=== PATIENT | female | born 1990 | race Hispanic/Latino ===

== ENCOUNTER 2020-07-24 09:20 | Observation (INO) | payer BC, OTHER ==
[~2020-07-24] VITALS: Ht 162.6 cm; Wt 81.6 kg
[2020-07-24] MEDS ORDERED: SODIUM CHLORIDE 0.9% 1000ML 1,000 ML IV STA (09:33)
--- NOTE | 2020-07-24 09:36 | Emergency Department Note ---
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 PT STATES SHE HAS NOT BEEN ABLE TO EAT SINCE. PT REPORTS VOMITING YESTERDAY. Historian: Patient Arrival Mode: Car Additional Treatment RECOVERY ASSISTANT: antacid yesterday Hand Etcher Helper Required: No Onset (how long ago): day(s) (2) Location: RLQ Quality: Sharp Radiation: Reports non-radiation Severity: moderate Onset quality: gradual Duration (how long): day(s) (2) Timing of current episode: constant Progression: worsening Chronicity: new Context: Denies recent illness, Denies recent surgery Relieving factors: none Exacerbating factors: none Associated symptoms: Reports denies other symptoms Treatments prior to arrival: none Past Medical/Family History Physician Review I have reviewed the patient's past medical and family history. Any updates have been documented here. Past Medical History Recent Fever: No Clinical Suspicion of Infectio: No New/Unexplained Change in Ment: No Past Surgical History: Bariatric Surgery Other Surgery: PILONIDAL CYST REMOVED Social History Smoking Cessation: Current some day smoker Alcohol Use: Occasional Any Illegal Drug Use: No Physically hurt or threatened: No Other Last Tetanus: UTD Any Pre-Existing Lines (PICC,: No Review of Systems Review of Systems Constitutional: Reports no symptoms EENTM: Reports no symptoms Cardiovascular: Reports no symptoms Respiratory: Reports no symptoms Gastrointestinal: Reports as per HPI, Reports abdominal pain, Reports nausea, Reports vomiting Genitourinary: Reports no symptoms Musculoskeletal: Reports no symptoms Integumentary: Reports no symptoms Neurological: Reports no symptoms Psychological: Reports no symptoms Endocrine: Reports no symptoms Hematological/Lymphatic: Reports no symptoms Physical Exam Related Data Allergies: Coded Allergies: No Known Drug Allergies (Verified Allergy, Unknown, 05/04/12) Triage Vital Signs Vital Signs Date Time Temp Pulse Resp B/P (MAP) Pulse Ox O2 Delivery O2 Flow Rate FiO2 07/24/20 09:23 98.1 83 18 142/95 100 Vital signs reviewed: Yes Physical Exam CONSTITUTIONAL Constitutional: Present well-developed, Present well-nourished HENT HENT: Present normocephalic, Present atraumatic, Present oropharynx clear/moist, Present nose normal HENT L/R: Present left ext ear normal, Present right ext ear normal EYES Eyes: Reports PERRL, Reports conjunctivae normal NECK Neck: Present ROM normal PULMONARY Pulmonary: Present effort normal, Present breath sounds normal CARDIOVASCULAR Cardiovascular: Present regular rhythm, Present heart sounds normal, Present capillary refill normal, Present normal rate GASTROINTESTINAL Abdominal: Present soft, Present bowel sounds normal, Present tender (RLQ); Absent nontender GENITOURINARY Genitourinary: Present exam deferred SKIN Skin: Present warm, Present dry MUSCULOSKELETAL Musculoskeletal: Present ROM normal NEUROLOGICAL Neurological: Present alert, Present oriented x 3, Present no gross motor or sensory deficits PSYCHOLOGICAL Psychological: Present mood/affect normal, Present judgement normal Results Laboratory Lab results reviewed: Yes Imaging Imaging results reviewed: Yes Diagnostics Tests Diagnostic test(s) reviewed: Yes Assessment & Plan Medical Decision Making MDM 29 y.o F presents for RLQ abd pain x 2 days. Exam sows RLQ tenderness. VSS, WNL. Diff includes appendicitis vs ovarian etiology vs functional abdominal pain among others. W/u Shows uncomfortable appendicitis. Dr. Bettencourt was consulted and will admit for surgery this afternoon. She was given Zosyn and blood cultures were sent. I do not suspect sepsis at this time and she'll not require fluids. Maintenance fluids started patient's appropriate for transfer to the OR. Reassessment Reassessment time: 11:29 Reassessment Well appearing, NAD Assessment & Plan Final Impression: (1) Appendicitis Depart Disposition: ADMITTED Last Vital Signs Date Time Temp Pulse Resp B/P (MAP) Pulse Ox O2 Delivery O2 Flow Rate FiO2 07/24/20 09:23 98.1 83 18 142/95 100 Home Meds No Active Prescriptions or Reported Meds CAMI ARAIZA MD Jul 24, 2020 09:36
[2020-07-24] MEDS ORDERED: MORPHINE SULFATE INJ 4 MG/ML INJ 1ML IV PRN ×2 (09:45→11:45)
[2020-07-24] MEDS ORDERED: ONDANSETRON HCL INJ 2MG/ML 2ML 2 MG/ML VIAL IV PRN ×2 (09:45→11:30)
[2020-07-24 09:50] LABS: BASOPHILS # (AUTO) 0.1 (0.0-0.1); BASOPHILS % 0.5 % (0.0-1.0); EOSINOPHILS # (AUTO) 0.1 (0.0-0.4); EOSINOPHILS % 0.5 % (0.0-6.0); HEMATOCRIT 34.1 % (34.2-44.1); HEMOGLOBIN 10.2 g/dL (12.0-16.0); LYMPHOCYTES # (AUTO) 2.1 (1.0-3.2); LYMPHOCYTES % 16.2 % (18.0-39.1); MEAN CORPUSCULAR HEMOGLOBIN 23.2 pg (28-32); MEAN CORPUSCULAR HGB CONC 29.9 g/dL (31-35); MEAN CORPUSCULAR VOLUME 77.5 fL (81-99); MONOCYTES # (AUTO) 0.5 (0.2-0.8); MONOCYTES % 4.1 % (4.4-11.3); NEUTROPHILS % 78.3 % (38.7-80.0); PLATELET COUNT 430 x10e3/uL (140-360); RED CELL DISTRIBUTION WIDTH 15.1 % (11.7-14.4)
--- OUTSIDE RECORDS SUMMARY | 2020-07-24 09:56 | XMS REPORT | Clinical Summary ---
Author Author [facility] Address Unknown Phone Unavailable Care Team Providers Care Radio Board Operator Announcer Name Role Phone PCP Unavailable Allergies Not on File Medications Not on file Active Problems Not on file Immunizations Name Administration Dates Next Due FLUCELVAX QUAD PF 06/20/2019, 05/18/2018 Social History Date Tobacco Use Types Packs/Day Years Used Never Assessed Sex Assigned at Date Recorded Not on file Last Filed Vital Signs Not on file Plan of Treatment Health Maintenance Due Date Last Done Comments CERVICAL CANCER SCREENING 2013 INFLUENZA VACCINE 03/30/2020 06/20/2019, 05/18/2018 Results Not on fileafter 07/24/2019 Insurance Type Payer Benefit Subscriber ID Effective Phone Address Plan / Dates Group PPO BCBS BCBS [id number] 2018-P CHOICE resent PPO/FEDER[place] L EMPL PPO PPO BCBS ANTHEM [id number] 2015-P BLUE CROSS resent Advance Directives For more information, please contact: [phone] Patient Clinical Exercise Specialist Explanation Type Date Recorded Advance Directives, Living Will and Medical Power of Gun Stock Maker
[2020-07-24 10:23] LABS: ALANINE AMINOTRANSFERASE 6 IU/L (0-55); ALBUMIN 3.9 g/dL (3.5-5.0); ALBUMIN/GLOBULIN RATIO 0.9 (0.8-2.0); ALKALINE PHOSPHATASE 59 IU/L (40-150); ANION GAP 13.1 mmol/L (8-16); BLOOD UREA NITROGEN 6 mg/dL (7-26); BUN/CREATININE RATIO 9 (6-25); CALCIUM 9.2 mg/dL (8.4-10.2); CARBON DIOXIDE 24 mmol/L (22-29); CHLORIDE 103 mmol/L (98-107); CREATININE, SERUM 0.69 mg/dL (0.57-1.11); EST GLOMERULAR FILTRATION RATE > 60 ML/MIN (60-); GLUCOSE 94 mg/dL (74-118); LIPASE 11 U/L (8-78); POTASSIUM 4.1 mmol/L (3.5-5.1); SODIUM 136 mmol/L (136-145)
[2020-07-24 10:29] LABS: HCG,QUANTITATIVE < 1.20 mIU/mL (0-10)
[2020-07-24] MEDS ORDERED: PIPERACILLIN/TAZO 4.5 GM 100 ML IV STA (11:16)
--- NOTE | 2020-07-24 11:19 | Diagnostic Imaging Report ---
EXAM: CT Abdomen and Pelvis WITH intravenous contrast INDICATION: Right lower quadrant abdominal pain COMPARISON: None. TECHNIQUE: Abdomen and pelvis were scanned utilizing a multidetector helical scanner from the lung base to the pubic symphysis after administration of IV contrast. Coronal and sagittal reformations were obtained. Routine protocol was performed. Scan was performed during portal venous phase. IV CONTRAST: 100mL of Isovue 370 ORAL CONTRAST: Water RADIATION DOSE: Total DLP: 425 mGy*cm Dose modulation, iterative reconstruction, and/or weight based adjustment of the mA/kV was utilized to reduce the radiation dose to as low as reasonably achievable. FINDINGS: LOWER THORAX: Normal. HEPATOBILIARY: No focal hepatic lesions. No biliary ductal dilatation. The gallbladder appears unremarkable. SPLEEN: No splenomegaly. PANCREAS: No focal masses or ductal dilatation. ADRENALS: No adrenal nodules. KIDNEYS/URETERS: No hydronephrosis, stones, or solid mass lesions. PELVIC ORGANS/BLADDER: Unremarkable. PERITONEUM / RETROPERITONEUM: No free air or fluid. LYMPH NODES: No lymphadenopathy. VESSELS: Unremarkable. GI TRACT: Dilated appendix to 11 mm with periappendiceal wall thickening and proximal appendicolith. No appendiceal abscess or associated free air. No bowel obstruction. Status post gastric lap band. BONES AND SOFT TISSUES: No acute osseous injury. No suspicious lytic or blastic lesions. IMPRESSION: Acute appendicitis. The above findings were discussed with Dr. Vallejo on 07/24/2020 11:15 AM, who responded indicating that the communication was understood. Signed by: Miller Brewer MD on 07/24/2020 11:16 AM
[2020-07-24 11:21] LABS: BILIRUBIN,URINE NEGATIVE (NEGATIVE); CLARITY,URINE CLEAR (CLEAR); COLOR,URINE YELLOW (YELLOW); KETONES,URINE 2+ (NEGATIVE); LEUKOCYTE ESTERASE ,URINE TRACE (NEGATIVE); NITRITE,URINE NEGATIVE (NEGATIVE); PROTEIN,URINE DIPSTICK NEGATIVE (NEGATIVE); URINE UROBILINOGEN 0.2 mg/dL (0.2 - 1)
[2020-07-24] MEDS ORDERED: MORPHINE SULFATE 2 MG/ML SYR 1ML IV PRN (11:30)
--- OUTSIDE RECORDS SUMMARY | 2020-07-24 11:37 | XMS REPORT | Clinical Summary ---
Author Author [facility] Organization [facility] Address Unknown Phone Unavailable Care Team Providers Care Dump Motorman Name Role Phone PCP Unavailable Allergies Not [...] Plan / Dates Group PPO BCBS BCBS [id number] 2018-P CHOICE resent PPO/FEDERA L EMPL PPO PPO BCBS ANTHEM [id number] 2015-P BLUE CROSS resent Advance Directives For more information, please contact: [phone] Patient Patient Appointment Coordinator Explanation Type Date Recorded Advance Directives, Living Will and Medical Power of Eyeglass Frame Truer
--- OUTSIDE RECORDS SUMMARY | 2020-07-24 11:37 | XMS REPORT | Continuity of Care Document ---
Author Author [facility] t Organization [facility] Address [address] [place] [address] [address] [place] [address] Phone Unavailable Care Team Providers Care Ecologist Technician Name Role Phone Yoni, Eliel Cami Attphys Unavailable Problems This patient has no known problems. Allergies, Adverse Reactions, Alerts This patient has no known allergies or adverse reactions. Social History Social Habit Start Date Stop Date Quantity Comments Source Sex Assigned At [facility] Medications This patient has no known medications. Immunizations Ordered Immunization Name Filled Immunization Name Date Status Comments Source FLUCELVAX QUAD PF 2019-06-20 00:00:00 Completed [facility] FLUCELVAX QUAD PF 2018-05-18 00:00:00 Completed [facility] Procedures This patient has no known procedures. Plan of Care Planned Activity Planned Date Details Comments Source Future Scheduled Test 2020-03-30 00:00:00 INFLUENZA VACCINE [code = INFLUENZA VACCINE] [facility] Future Scheduled Test 2013 00:00:00 Screening for donna gnant neoplasm of cervix (procedure) [code = 201595986] [facility] Results Test Description Test Time Test Comments Results Result Comments Source CT ABDOMEN/PELVIS W 2020-07-24 11:10:00 [facility] 1990 Sex: F [facility] [place] [address] Patient Name: LISSA MILLER MR #: [id number] : 1990 Age/Sex: 29/F Req #: [id number] Adm Physician: Ordered by: Cami Vallejo MD Report #: [id number] Location: ER Room/Bed: Procedure: [id number] CT/CT ABDOMEN/PELVIS W Exam Date: Exam Time: REPORT STATUS: Signed EXAM: CT Abdomen and Pelvis WITH intravenous contrast INDICATION: Right lower quadrant abdominal pain COMPARISON: None. TECHNIQUE: Abdomen and pelvis were scanned utilizing a multidetector helical scanner from the lung base to the pubic symphysis after administration of IV contrast. Coronal and sagittal reformations were obtained. Routine protocol was performed. Scan was performed during portal venous phase. IV C ONTRAST: 100mL of Isovue 370 ORAL CONTRAST: Water RADIATION DOSE: Total DLP: 425 mGy*cm Dose modulation, iterative reconstruction, and/or weight based adjustment of the mA/kV was utilized to reduce the radiation dose to as low as reasonably achievable. FINDINGS: LOWER THORAX: Normal. HEPATOBILIARY: No focal hepatic lesions. No biliary ductal dilatation. The gallbladder appears unremarkable. SPLEEN: No splenomegaly. PANCREAS: No focal masses or ductal dilatation. ADRENALS: No adrenal nodules. KIDNEYS/URETERS: No hydronephrosis, stones, or solid mass lesions. PELVIC ORGANS/BLADDER: Unremarkable. PERITONEUM / RETROPERITONEUM: No free air or fluid. LYMPH NODES: No lymphadenopathy. VESSELS: Unremarkable. GI TRACT: Dilated appendix to 11 mm with periappendiceal wall thickening and proximal appendicolith. No appendiceal abscess or associated free air. No bowel obstruction. Status post gastric lap band. BONES AND SOFT TISSUES: No acute osseous injury. No suspicious lytic or blastic lesions. IMPRESSION: Acute appendicitis. The above findings were discussed with Dr. Vallejo on 07/24/2020 11:15 AM, who responded indicating that the communication was understood. Signed by: Tay Cronin MD on 07/24/2020 11:16 AM Dictated By: TAY CRONIN MD 111 Transcribed By: RAMOS on 07/24/201115 COPY TO: CAMI VALLEJO MD
[2020-07-24 11:44] LABS: BACTERIA,URINE RARE /HPF; EPITHELIAL CELLS,URINE FEW /LPF; RBC,URINE 0-5 /HPF (0-5)
--- NOTE | 2020-07-24 11:49 | NUR ---
Report was called to GRADY Watson in [place] [address] at 1146. Giving Zosyn and then bringing to the unit.
[2020-07-24] MEDS: SODIUM CHLORIDE 0.9% 1000ML 1,000 ML IV SCH ×2 (11:57→12:49)
--- NOTE | 2020-07-24 12:15 | NUR ---
Pt arrived via stretcher from ER. Pt ambulated from stretcher to bed with a steady gait. Pt in no apparent distress. Bed in lowest position. Pt denies pain 0/10.
[2020-07-24] MEDS ORDERED: FENTANYL CITRATE/PF 100MCG/2 ML INJ ONE (12:16)
[2020-07-24] MEDS ORDERED: MIDAZOLAM HCL 2 MG/2 ML VIAL ONE (12:16)
[2020-07-24 12:42] VITALS: BP 137/69
[2020-07-24] MEDS ORDERED: BUPIVACAINE HCL 0.5% INJ 30 ML VIAL INJ ONE (13:03)
[2020-07-24] MEDS ORDERED: SODIUM CHLORIDE 0.9% 50ML 50 ML ONE (13:32)
[2020-07-24] MEDS ORDERED: IOPAMIDOL 370 MG/ML 200 ML INFUS..BTL INJ ONE (13:32)
[2020-07-24 14:00] VITALS: BP 137/69
[2020-07-24] MEDS ORDERED: ACETAMINOPHEN 325 MG TAB PO PRN (14:45)
--- NOTE | 2020-07-24 15:17 | History and Physical ---
CHIEF COMPLAINT: Abdominal pain. HISTORY OF PRESENT ILLNESS: The patient is a 29-year-old female, who had abdominal pain, says started epigastric about a day and a half ago, then localized to right lower quadrant. She has associated nausea and vomiting. The pain has persisted, she came to the emergency room, where CT of the abdomen and pelvis was done, which revealed findings suggestive of acute appendicitis. PAST MEDICAL HISTORY: Unremarkable. She denies chronic medical problems. MEDICATIONS: There were no current medications. ALLERGIES: NO KNOWN ALLERGIES. PREVIOUS SURGERIES: Tonsillectomy and excision of a pilonidal cyst many years ago. FAMILY HISTORY: Noncontributory. SOCIAL HISTORY: The patient rarely smokes cigarettes and occasionally drinks alcohol. REVIEW OF SYSTEMS: As stated above, otherwise was negative. PHYSICAL EXAMINATION: GENERAL: The patient is awake and alert, in no distress. VITAL SIGNS: Normal. HEENT: The sclerae is not icteric. NECK: Supple. No masses. LUNGS: Equal breath sounds, clear bilaterally. CARDIAC: Regular rate and rhythm with no murmur. ABDOMEN: Tender in the right lower quadrant with signs of peritonitis localized to right lower quadrant. There is no mass. EXTREMITIES: Have no edema. Pulses are palpable. NEUROLOGIC: Intact. ASSESSMENT AND PLAN: A 29-year-old female with acute appendicitis, she is now admitted to the hospital, plan laparoscopic appendectomy. Procedure was explained to the patient including risks, benefits, and alternatives, she understands, she has had the opportunity to ask questions. She is aware of the possible need for open surgery. MD CHRISTOPH Arias/SHUN /[id number]
[2020-07-24 15:19] VITALS: BP 128/71
--- NOTE | 2020-07-24 15:27 | Operative Report ---
DATE OF PROCEDURE: 07/24/2020 SURGEON: George Bettencourt MD PREOPERATIVE DIAGNOSIS: Acute appendicitis. POSTOPERATIVE DIAGNOSIS: Acute appendicitis. PROCEDURES: Diagnostic laparoscopy, laparoscopic appendectomy. WEATHERSTRIP MACHINE OPERATOR: None. ANESTHESIA: General endotracheal. INDICATIONS AND FINDINGS: This patient is a 29-year-old female, who presented with complaints of abdominal pain started epigastric, localized to right lower quadrant. Workup revealed probable acute appendicitis. At surgery, the patient was found to have acutely inflamed retrocecal appendicitis. TECHNIQUE: After adequate general endotracheal anesthesia, the patient in supine position, the abdomen was prepped and draped in sterile fashion with ChloraPrep solution. Skin in the umbilicus was infiltrated with 0.5% Marcaine, incision made in the umbilicus. Abdominal wall was elevated and Veress needle was introduced. Pneumoperitoneum was then created. A 10 mm trocar and cannula was then passed through the umbilical wound. Laparoscopic camera was introduced. Initial laparoscopy revealed no free fluid. Appendix was not initially seen. A 12 mm trocar and cannula were placed suprapubically, and a 5-mm trocar and cannula were placed in the right upper quadrant. These were placed under direct vision. The appendix seen to be retrocecal. The cecum was mobilized by dividing peritoneal attachments using a LigaSure device. The appendix was then visualized, its free from surrounding structures by dividing some of the peritoneal attachments. Base of the appendix was grasped, and a window was created between the base of the appendix. The mesoappendix and the base of the appendix were divided close to the cecum with Endo-JAGDISH stapler. The mesoappendix was then divided with LigaSure device freeing the appendix completely. The appendix was then placed into an Endopouch and brought out through the suprapubic cannula. Care was taken to not touch the abdominal wall. The area of the appendectomy was inspected for hemostasis, which was seen to be adequate. It was irrigated with saline. All fluid aspirated and inspected for hemostasis, which was seen to be adequate. Instruments and cannulas were removed. Pneumoperitoneum was evacuated. Wounds were then closed. Fascia in the umbilical and suprapubic were closed with 0-Vicryl. Skin to all wounds closed with steve. Sterile dressings applied to each wound. The patient tolerated the procedure well. Estimated blood loss was 10 mL. There were no complications. All counts were correct and the patient was taken to the recovery room in satisfactory condition. MD CHRISTOPH Arias/SHUN /[id number]
[2020-07-24] MEDS: DEXTROSE 5%/0.45% SOD CHL 1,000 ML IV SCH (16:07)
[2020-07-24] MEDS: HYDROCODONE/APAP 5MG-325MG TAB PO PRN (16:08)
[2020-07-24] MEDS ORDERED: ONDANSETRON HCL INJ 2MG/ML 2ML 2 MG/ML VIAL ONE (16:21)
[2020-07-24] MEDS ORDERED: KETOROLAC TROMETHAMINE 30 MG/ML VIAL ONE (16:21)
[2020-07-24] MEDS ORDERED: LIDOCAINE HCL 2% LOCAL INJ 5 ML SDV VIAL INJ ONE (16:21)
[2020-07-24] MEDS ORDERED: SEVOFLURANE INHAL SOLN 250 ML PEN BTL ONE (16:21)
[2020-07-24] MEDS ORDERED: DEXAMETHASONE SOD PHOS INJ 4 MG/ML VIAL ONE (16:21)
[2020-07-24] MEDS ORDERED: PROPOFOL IV EMULSION 10 MG/ML 20 ML VIAL ONE (16:21)
[2020-07-24] MEDS ORDERED: GLYCOPYRROLATE INJ 0.2 MG/ML VIAL ONE (16:21)
[2020-07-24] MEDS ORDERED: ROCURONIUM BROMIDE 10 MG/ML 5ML VIAL IV ONE (16:21)
[2020-07-24] MEDS ORDERED: NEOSTIGMINE 1 MG/ML 10ML VIAL ONE (16:21)
--- NOTE | 2020-07-24 17:00 | NUR ---
Report given to on coming nurse. Pt lying in bed semi-fowlers position and no apparent distress. Bed in its lowest position, call light within reach. Pt denies pain 11/06.
[2020-07-24] MEDS: PIPER-TAZ 3.375 GM 50 ML IV SCH (18:16)
--- NOTE | 2020-07-24 19:00 | NUR ---
RECEIVED BEDSIDE SHIFT REPORT FROM PREVIOUS NURSE. CALL LIGHT WITHIN REACH. PATIENT IN BED. BOYFRIEND AT THE BEDSIDE.
[2020-07-24 20:00] VITALS: BP 98/51
[2020-07-24] MEDS: MORPHINE SULFATE INJ 4 MG/ML INJ 1ML IV PRN (20:27)
[2020-07-24] MEDS: ONDANSETRON HCL INJ 2MG/ML 2ML 2 MG/ML VIAL IV PRN (20:27)
[2020-07-25] VITALS: BP 118/62
[2020-07-25] MEDS: PIPER-TAZ 3.375 GM 50 ML IV SCH ×2 (00:03→05:29)
[2020-07-25] MEDS: ONDANSETRON HCL INJ 2MG/ML 2ML 2 MG/ML VIAL IV PRN (00:43)
[2020-07-25] MEDS: MORPHINE SULFATE INJ 4 MG/ML INJ 1ML IV PRN (00:43)
[2020-07-25] MEDS: DEXTROSE 5%/0.45% SOD CHL 1,000 ML IV SCH (03:53)
[2020-07-25 04:00] VITALS: BP 109/62
--- NOTE | 2020-07-25 07:30 | NUR ---
GAVE BEDSIDE SHIFT TO ONCOMING NURSE. CALL LIGHT WITHIN REACH. PATIENT IN BED. HOURLY ROUNDING PERFORMED.
[2020-07-25] MEDS: HYDROCODONE/APAP 5MG-325MG TAB PO PRN (07:32)
[2020-07-25 08:27] VITALS: BP 103/64
--- NOTE | 2020-07-25 08:47 | NUR ---
Discharge education provided. prescription given. PIV to left AC removed, catheter tip intact, no bleeding noted. Awaiting for flower buncher or picker.
[2020-07-25 09:21] VITALS: BP 103/64
--- NOTE | 2020-07-25 09:35 | NUR ---
Patient transported via wheelchair with all personal belongings taken.
== END 2020-07-25 09:35 | disposition home or self-care (01) ==
LOC: ER 09:53 → ERHOLD 11:25 → MED/SURG 12:14
PROVIDERS: ADMIT Surgery; ATTEND Surgery
DX: K35.80 Unspecified acute appendicitis (principal); Z20.828 Contact with and (suspected) exposure to other viral communicable diseases; Z72.0 Tobacco use; Z98.84 Bariatric surgery status
CPT/HCPCS: 36415; 44970; 74177; 80053; 81001; 83605; 83690; 84702; 85025; 87040; 88304; 99284; G0378 ×2; J1100; J1885; J2001; J2250; J2270 ×2; J2405 ×2; J2543 ×3; J2704; J2710; J3010; J7030; Q9967; U0002